=== PATIENT | female | born 2000 | race Caucasian/White ===

== ENCOUNTER 2019-11-06 09:37 | Emergency (ER) | payer OTHER ==
[~2019-11-06] VITALS: Ht 157.5 cm; Wt 52.2 kg
[2019-11-06 09:43] VITALS: BP 131/50
--- NOTE | 2019-11-06 10:13 | NUR ---
Patient discharged to home in stable condition. Written and verbal after care instructions given. Patient verbalizes understanding of instruction.
== END 2019-11-06 10:13 | disposition home or self-care (01) ==
LOC: ER 09:37
DX: L03.211 Cellulitis of face (principal)